=== PATIENT | female | born 1995 | race Two or more races ===

== ENCOUNTER 2022-11-17 19:19 | Emergency (ER) | payer BC, OTHER ==
[~2022-11-17] VITALS: Ht 157.5 cm; Wt 57.8 kg
[2022-11-17] MEDS ORDERED: KETOROLAC TROMETH 30 MG/ML 1ML VIAL IM ONE (22:15)
[2022-11-17 22:24] VITALS: BP 125/64; PULSE 82; RESP 16; TEMP 98.5; O2SAT 99
[2022-11-17] MEDS ORDERED: IBUP-1455 PO (23:17)
== END 2022-11-17 23:52 | disposition home or self-care (01) ==
LOC: ER 19:19
DX: M25.532 Pain in left wrist (principal)
CPT/HCPCS: 73030; 73110; 96372; 99284; C1729; J1885